=== PATIENT | female | born 1960 | race Caucasian/White ===

== ENCOUNTER → 2016-12-14 | Outpatient (CLI) | payer OTHER ==
--- NOTE | 2016-12-14 13:38 | DIAGNOSTIC IMAGING REPORT ---
PROCEDURE: XR SHOULDER 2 OR MORE VW-LEFT INDICATION: Shoulder pain. No trauma. TECHNIQUE: Three views. COMPARISON: None. FINDINGS: There are mild degenerative changes of the left acromioclavicular joint. The rest of the osseous structures and joint spaces are normal. IMPRESSION: 1. Mild degenerative change of the left apical clavicular joint. 2. Otherwise negative left shoulder.
== END ==
LOC: XR SRH 10:52
DX: M25.512 Pain in left shoulder (principal); G89.4 Chronic pain syndrome; R20.2 Paresthesia of skin

== ENCOUNTER 2017-03-12 12:59 | Outpatient (CLI) | payer OTHER ==
--- NOTE | 2017-03-12 14:02 | DIAGNOSTIC IMAGING REPORT ---
PROCEDURE: XR HIP BILATERAL INDICATION: HIP PAIN TECHNIQUE: AP view of the pelvis and hips with lateral views of the bilateral hips. COMPARISON: None. FINDINGS: RIGHT HIP: Osteoarthritis. No fracture or dislocation. LEFT HIP: Osteoarthritis. No fracture or dislocation PELVIS: Osseous pelvis is normal. IMPRESSION: 1. Osteoarthritis bilateral hips.
== END 2017-03-12 23:00 ==
LOC: XR SRH 12:59
DX: M16.0 Bilateral primary osteoarthritis of hip (principal)